=== PATIENT | female | born 1945 | race Caucasian/White ===

== ENCOUNTER 2020-05-26 17:40 | Inpatient (IN) | payer MEDICARE, SELFPAY ==
[~2020-05-26] VITALS: Ht 157.5 cm; Wt 64.0 kg
--- NOTE | 2020-05-26 17:40 | NUR ---
Froylan mary in [facility] - 05/26/20 at 1806 by ELY PT TO FAST TRACK FOR EVALUATION
[2020-05-26 17:45] VITALS: BP_SYST 121
--- NOTE | 2020-05-26 17:45 | NUR ---
[facility] DA[facility]. PT HAS RECENT COVID DIAGNOSIS 5 DAYS AGO. SPO2 97% ON RA AND PT CURRENTLY IN NO ACUTE DISTRESS. V/S STABLE.
--- NOTE | 2020-05-26 17:46 | NUR ---
DR. HANNAH AT BEDSIDE TO EVALUATE PT STATUS
--- NOTE | 2020-05-26 17:46 | NUR ---
Patient to ER bed FT1 to gown for evaluation. Side rails up.
[2020-05-26 18:31] LABS: BASOPHILS % (AUTO) 0.2 % (0.0-2.0); HEMATOCRIT 30.9 % (36-48); HEMOGLOBIN 10.3 g/dL (12.0-16.0); LYMPHOCYTES # (AUTO) 0.6 K/uL (1.0-5.5); LYMPHOCYTES % (AUTO) 14.4 % (20.5-51.5); MEAN CORPUSCULAR HEMOGLOBIN 26 pg (27-31); MEAN CORPUSCULAR HGB CONC 33 % (32-36); MEAN CORPUSCULAR VOLUME 77 fL (79.0-98.0); MONOCYTES # (AUTO) 0.4 K/uL (0.0-1.0); MONOCYTES % (AUTO) 9.3 % (1.7-9.3); NEUTROPHILS # (AUTO) 3.1 K/uL (1.8-7.7); NEUTROPHILS % (AUTO) 76.1 % (40.0-70.0); PLATELET COUNT (AUTO) 442 K/uL (130-430); RED BLOOD CELL COUNT(AUTO) 4.02 MIL/uL (4.2-6.2); RED CELL DISTRIBUTION WIDTH 19.7 % (9.0-15.0); WHITE BLOOD COUNT (AUTO) 4.1 K/uL (4.8-10.8)
--- NOTE | 2020-05-26 18:59 | NUR ---
Pt resting in [facility] at this time, no distress noted, VSS
[2020-05-26 19:12] LABS: INR 3.7 (0.8-1.2); PROTHROMBIN TIME 36.4 SECS (9.5-12.5)
--- NOTE | 2020-05-26 19:13 | NUR ---
bedside report received from felting machine operatorkeyona hoskins. keyona porter will assume pt care
--- NOTE | 2020-05-26 19:17 | NUR ---
pt resting quietly in bed vital signs stable will continue to monitor
[2020-05-26 19:18] LABS: ANION GAP 14 (5-15); CALCIUM 8.8 mg/dL (8.4-11.0); CHLORIDE 90 mmol/L (98-107); GLUCOSE 149 mg/dL (70-99); POTASSIUM 3.2 mmol/L (3.5-5.1); SODIUM SERUM 131 mmol/L (136-145); UREA NITROGEN, BLOOD 32 mg/dL (8-21)
[2020-05-26 19:19] LABS: ALANINE AMINOTRANSFERASE 61 U/L (12-78); ALBUMIN 2.9 g/dL (3.4-4.8); ASPARTATE AMINOTRANSFERASE 137 U/L (10-37); CREATININE 1.32 mg/dL (0.55-1.30); TOTAL BILIRUBIN 6.2 mg/dL (0.0-1.0)
[2020-05-26] MEDS ORDERED: metroNIDAZOLE 500 mg/NS 100 ML IV ONE (19:30)
--- NOTE | 2020-05-26 19:45 | NUR ---
MED SURG ADMIT ORDERS TAKEN FROM MD POLANCO VIA TELEPHONE READBACK
[2020-05-26] MEDS ORDERED: cefTRIAXone 2 GM VIAL ONE (19:59)
[2020-05-26] MEDS: D5NS 1,000 ML IV SCH (21:06)
[2020-05-26] MEDS ORDERED: ACETAMINOPHEN 500 MG TABLET PO PRN (21:15)
[2020-05-26] MEDS ORDERED: ZOLPIDEM TARTRATE 5 MG TABLET PO PRN (21:15)
[2020-05-26] MEDS ORDERED: HYDROcodone/ACETAMIN 7.5-325 MG TAB PO PRN (21:15)
[2020-05-26] MEDS ORDERED: DOCUSATE SODIUM 100 MG/10 ML UDC PO PRN (21:15)
[2020-05-26] MEDS ORDERED: ONDANSETRON HCL 4 MG/2 ML VIAL IVP PRN (21:15)
[2020-05-26 21:40] LABS: FREE T4 (FREE THYROXINE) 2.2 ng/dl (0.8-1.5); PHOSPHORUS 1.9 mg/dL (2.7-4.5); THYROID STIMULATING HORMONE 0.56 uIu/mL (0.36-3.74)
--- NOTE | 2020-05-26 22:12 | NUR ---
SPOKEN TO MD MADDEN WILL CONSULT IN THE AM
--- NOTE | 2020-05-26 22:40 | NUR ---
COVID SAMPLE AND MRSA SWAB COLLECTED AND SENT TO LAB AWAITING RESULTS PT TOLERATED WELL
--- NOTE | 2020-05-26 22:51 | NUR ---
LAB AT BEDSIDE RETRIEVING SAMPLES PT TOLERATED WELL
--- NOTE | 2020-05-26 23:26 | NUR ---
PT RESTNG QUIETLY IN BED VITAL SIGNS STABLE WILL CONTINUE TO MONITOR
--- NOTE | 2020-05-26 23:32 | NUR ---
PT REPORT CALLED TO BATTERY TESTER MYLENE WHO RECIEVED REPORT AND WILL ASSUME CARE OF PT. PT TRANSPORTED VIA GURNEY BY ELECTRICAL LINESWORKER TO MED SURG ROOM 121C VITAL SIGNS STABLE UPON TRANSFER.
--- NOTE | 2020-05-26 23:45 | NUR ---
ADMIT NOTE Received pt from ER to the floor with a diagnosis of failure to thrive. Admission process initiated. patient oriented to pain management, safety and call light-teach back done.
[2020-05-27] VITALS (7 sets, daily range): BP systolic 102–126
--- NOTE | 2020-05-27 04:43 | NUR ---
CONSULTATION PAGED/CALLED Reason for Consultation: GI Person Who was Notified: TAMIKO Consulting Physician: JUAQUIN Pain Management Nurse Specialty: Ordering Physician: Shan POLANCO
[2020-05-27] MEDS ORDERED: metroNIDAZOLE 250 mg/NS 50 ML IV SCH (08:15)
--- NOTE | 2020-05-27 08:45 | NUR ---
Opening Notes Patient is awake, alert and oriented x2. Patient is noted with intermittent episodes of confusion. Pt is also noted crying while laying in bed. NO resp distress noted at this time. Pt remains on continuous oxygen @ 2 LPM, tolerated well. IV site on right AC, 22 gauge intact at this time. D5NS @ 60 cc/hr, infusing well at this time. Patient is incontinent. Cleaned, left dry and repositioned while in bed. All needs met at this time. Safety and fall precautions in place. Bed in lowest position, alarm on, locked. Will continue to monitor.
[2020-05-27] MEDS: FAMOTIDINE 20 MG TABLET PO SCH (09:00)
[2020-05-27] MEDS ORDERED: PHYTONADIONE 10 MG in NS 50 ML IV ONE (09:30)
[2020-05-27] MEDS: MORPHINE 2 MG/ML INJ. SYRINGE IVP PRN (09:45)
--- NOTE | 2020-05-27 09:45 | NUR ---
Morphine 2 mg IVP Patient is c/o gen body pain, 12/18, requesting pain medication. Administered Morphine 2 mg IVP, tolerated well. Will continue to monitor.
[2020-05-27] MEDS: LEVOFLOXACIN 250 MG/D5W 50 ML IV SCH (10:00)
[2020-05-27] MEDS: D5NS 1,000 ML IV SCH (10:00)
--- NOTE | 2020-05-27 10:10 | NUR ---
Nutrition Update Daniel Scale 15 noted. Pt admitted for FTT. Diet: Clear liquid BMI: 25.8 kg/m2 RD to follow per nutrition care standards.
[2020-05-27] MEDS: PANTOPRAZOLE SODIUM 40 MG TAB PO SCH (10:21)
--- NOTE | 2020-05-27 11:39 | NUR ---
CONSULTATION PAGED/CALLED Reason for Consultation: [] ELEVATED BUN/CREA Person Who was Notified: [] DR BUSBY Consulting Physician: [] DR BUSBY Pet Sitting Specialty: [] NEPHROLOGY Ordering Physician: [] DR Shan POLANCO
[2020-05-27 13:50] LABS: ANION GAP 5 (5-15); CHLORIDE 95 mmol/L (98-107); CREATININE 0.86 mg/dL (0.55-1.30); GLUCOSE 154 mg/dL (70-99); POTASSIUM 3.5 mmol/L (3.5-5.1); SODIUM SERUM 130 mmol/L (136-145); UREA NITROGEN, BLOOD 17 mg/dL (8-21)
[2020-05-27] MEDS: metroNIDAZOLE 250 mg/NS 50 ML IV SCH ×2 (14:00→21:36)
--- NOTE | 2020-05-27 15:35 | NUR ---
MEDICATION LIST: CALLED [facility] AND SPOKE WITH TRISTIAN. TRISTIAN STATED SHE WILL FAX OVER PATIENT'S MEDICATION LIST.
[2020-05-27] MEDS ORDERED: BACL10TA PO (16:12)
[2020-05-27] MEDS ORDERED: APIX5TAB PO (16:12)
[2020-05-27] MEDS ORDERED: MOM PO (16:12)
[2020-05-27] MEDS ORDERED: TRAZ-250 PO (16:12)
[2020-05-27] MEDS ORDERED: FURO-150 PO (16:12)
[2020-05-27] MEDS ORDERED: DILT60TA3 PO (16:12)
[2020-05-27] MEDS ORDERED: LIP20 PO (16:12)
[2020-05-27] MEDS ORDERED: FAMO20TA8 PO (16:12)
[2020-05-27] MEDS ORDERED: OXYC10TA56 PO (16:12)
[2020-05-27] MEDS ORDERED: ACET-2634 PO (16:12)
--- NOTE | 2020-05-27 17:06 | NUR ---
SS note received a suicide risk referral. Looked through both Admission Assessments and notes. No indication of suicide risk. Spoke with Kaylee GARCIA, no indication of suicide risk. referral in error. Kaylee will correct.
[2020-05-28 02:42] VITALS: BP_SYST 109
[2020-05-28] MEDS: D5NS 1,000 ML IV SCH ×2 (05:20→22:00)
[2020-05-28] MEDS: metroNIDAZOLE 250 mg/NS 50 ML IV SCH ×3 (05:50→22:00)
[2020-05-28 07:48] LABS: TOTAL IRON BIND. CAPACITY 221 ug/dL (250-450)
[2020-05-28 08:00] VITALS: BP_SYST 123
[2020-05-28 08:00] LABS: ANION GAP 10 (5-15); CALCIUM 8.2 mg/dL (8.4-11.0); CHLORIDE 97 mmol/L (98-107); CREATININE 0.78 mg/dL (0.55-1.30); GLUCOSE 151 mg/dL (70-99); SODIUM SERUM 136 mmol/L (136-145); UREA NITROGEN, BLOOD 11 mg/dL (8-21)
[2020-05-28 08:02] LABS: PROTHROMBIN TIME 10.7 SECS (9.5-12.5)
[2020-05-28] MEDS ORDERED: IPRATROPIUM/ALBUTEROL SULFATE 3 ML AMPUL.NEB (DUONEB) INH PRN (08:15)
[2020-05-28] MEDS ORDERED: FAMOTIDINE 20 MG TABLET ONE (08:37)
[2020-05-28 08:43] LABS: ACETAMINOPHEN < 1 ug/mL (1-30); POTASSIUM 2.8 mmol/L (3.5-5.1)
[2020-05-28 08:44] LABS: LIPASE 736 U/L (73-393)
--- NOTE | 2020-05-28 08:45 | NUR ---
CRITICAL LAB: POTASSIUM from Laboratory called with critical lab value POTASSIUM 2.8. Medical record number and patient name verified. Read back of values done. DR NOONAN notified of value. NEW orders given at this time.
[2020-05-28] MEDS: PANTOPRAZOLE SODIUM 40 MG TAB PO SCH (09:00)
[2020-05-28] MEDS: FAMOTIDINE 20 MG TABLET PO SCH (09:00)
[2020-05-28] MEDS: LEVOFLOXACIN 250 MG/D5W 50 ML IV SCH (09:39)
[2020-05-28] MEDS: MORPHINE 2 MG/ML INJ. SYRINGE IVP PRN ×2 (09:40→15:45)
--- NOTE | 2020-05-28 10:27 | NUR ---
MRI MRCP DEFERRED S/w radiology, stated "They cannot do the MRI MRCP d/t patient implant." Paged Dr. Olivares, awaiting callback.
[2020-05-28 10:29] VITALS: BP_SYST 123
[2020-05-28] MEDS: POTASSIUM CHLORIDE 40 MEQ, LIDOCAINE JECT 2% PF 100 MG 50 MG in NS 250 ML IV PRN (10:45)
[2020-05-28 12:00] VITALS: BP_SYST 114
[2020-05-28] MEDS ORDERED: DILTIAZEM HCL 60 MG TABLET PO ONE (12:00)
--- NOTE | 2020-05-28 12:01 | NUR ---
Dietitian Recommendations *Recommend: advance diet when able. ([facility] Card[facility] diet, Glucerna BID) *Encourage pt to optimize PO intake. Please see Nutritional Assessment for details. MEL, RD
[2020-05-28] MEDS ORDERED: LORazepam 2 MG/ML VIAL IVP ONE (13:15)
[2020-05-28 13:42] LABS: BASOPHILS % (AUTO) 1.7 % (0.0-2.0); HEMATOCRIT 29.8 % (36-48); HEMOGLOBIN 9.6 g/dL (12.0-16.0); LYMPHOCYTES # (AUTO) 0.4 K/uL (1.0-5.5); LYMPHOCYTES % (AUTO) 13.3 % (20.5-51.5); MEAN CORPUSCULAR HEMOGLOBIN 26 pg (27-31); MEAN CORPUSCULAR HGB CONC 32 % (32-36); MEAN CORPUSCULAR VOLUME 79 fL (79.0-98.0); MONOCYTES # (AUTO) 0.3 K/uL (0.0-1.0); MONOCYTES % (AUTO) 9.6 % (1.7-9.3); NEUTROPHILS # (AUTO) 2.1 K/uL (1.8-7.7); NEUTROPHILS % (AUTO) 75.4 % (40.0-70.0); PLATELET COUNT (AUTO) 278 K/uL (130-430); RED BLOOD CELL COUNT(AUTO) 3.78 MIL/uL (4.2-6.2); RED CELL DISTRIBUTION WIDTH 20.5 % (9.0-15.0); WHITE BLOOD COUNT (AUTO) 2.7 K/uL (4.8-10.8)
--- NOTE | 2020-05-28 14:55 | NUR ---
HIGH ALERT NOTE: Called Dr. Watson back at [phone] identified within the medical roster to verify physician authenticity. Obtained new orders for Ativan 0.5 mg IVP x 1 time only, give prior to MRI MRCP procedure. Noted and carried out. Addendum: 05/28/20 at 1942 by Krysta Triplett RN MRI MRCP is canceled d/t IMPLANT. Dr. Watson, Dr. Lopez are aware.
--- NOTE | 2020-05-28 15:11 | NUR ---
Abdominal Ultrasound teletype technician unable to complete exam due to patient motion and large amount of gas - informed Primary RN Krysta.
[2020-05-28 16:00] VITALS: BP_SYST 114
--- NOTE | 2020-05-28 16:00 | NUR ---
MIDLINE INSERTED ON ESTHER
--- NOTE | 2020-05-28 16:14 | NUR ---
CONSULT ONCOLOGY DUODENAL CANCER DR DAUGHERTY [phone] S/W [facility]
[2020-05-28] MEDS: KCL 20 mEq in 100 mL (PREMIX) 100 ML IV SCH ×2 (16:55→21:00)
--- NOTE | 2020-05-28 17:06 | NUR ---
Additional KRider dose S/w Dr. Yang and informed MD that patient already received KRider 40 mEq earlier in shift. Clarified if it was okay to give the additional (2) bags to KRider, MD confirmed it was okay to give. Will continue to monitor. Addendum: 05/28/20 at 1710 by Krysta Triplett RN Will endorse to next shift to give last dose of KRider.
[2020-05-28 18:28] LABS: INR 1.1 (0.8-1.2); PROTHROMBIN TIME 11.1 SECS (9.5-12.5)
--- NOTE | 2020-05-28 19:15 | NUR ---
OPENING NOTE REPORT RECEIVED FROM DAYSHIFT NURSE. PATIENT RECEIVED LYING IN BED, AWAKE, CONFUSED, NO S/S OF ACUTE DISTRESS. BREATHING EVEN AND UNLABORED. PATIENT DENIES PAIN. IVF INFUSING WELL. IV SITE PATENT, NO SIGNS OF INFILTRATION OR INFECTION NOTED. SKIN WARM AND DRY TO TOUCH. CALL LIGHT WITH PATIENT. EDUCATED ON HOW TO CALL, PATIENT DEMONSTRATED BACK PROPER USE. BED ALARM ON, BED IS LOCKED AND AT LOWEST POSITION. WILL CONTINUE TO MONITOR.
[2020-05-28 20:00] VITALS: BP_SYST 115
[2020-05-28] MEDS: MEGESTROL ACETATE 400 MG/10 ML UDC PO SCH (21:00)
[2020-05-28] MEDS: traZODone HCL 50 MG TABLET (DESYREL) PO SCH (21:00)
[2020-05-28] MEDS: ATORVASTATIN 20 MG TABLET PO SCH (21:00)
[2020-05-29] VITALS: BP_SYST 122
[2020-05-29] MEDS: metroNIDAZOLE 250 mg/NS 50 ML IV SCH ×3 (06:00→21:06)
[2020-05-29 07:06] LABS: BASOPHILS % (AUTO) 0.5 % (0.0-2.0); HEMOGLOBIN 8.8 g/dL (12.0-16.0); LYMPHOCYTES # (AUTO) 0.4 K/uL (1.0-5.5); MONOCYTES # (AUTO) 0.3 K/uL (0.0-1.0); NEUTROPHILS # (AUTO) 1.6 K/uL (1.8-7.7); RED BLOOD CELL COUNT(AUTO) 3.48 MIL/uL (4.2-6.2); WHITE BLOOD COUNT (AUTO) 2.2 K/uL (4.8-10.8)
[2020-05-29 07:19] LABS: EOSINOPHILS % (AUTO) 0.3 % (0.0-4.0); HEMATOCRIT 27.2 % (36-48); LYMPHOCYTES % (AUTO) 16.5 % (20.5-51.5); MEAN CORPUSCULAR HEMOGLOBIN 25 pg (27-31); MEAN CORPUSCULAR HGB CONC 33 % (32-36); MEAN CORPUSCULAR VOLUME 78 fL (79.0-98.0); MONOCYTES % (AUTO) 11.5 % (1.7-9.3); NEUTROPHILS % (AUTO) 71.2 % (40.0-70.0); PLATELET COUNT (AUTO) 212 K/uL (130-430); RED CELL DISTRIBUTION WIDTH 19.4 % (9.0-15.0)
--- NOTE | 2020-05-29 07:29 | NUR ---
CLOSING NOTE PATIENT IN BED, AWAKE, NO S/S OF ACUTE DISTRESS NOTED. BREATHING EVEN AND UNLABORED. ON ROOM AIR, TOLERATING WELL. IVF INFUSING WELL, IV SITE PATENT, NO SIGNS OF INFILTRATION OR INFECTION NOTED. ALL NEEDS MET THROUGHOUT SHIFT. FALL, SAFETY, AND ISOLATION PRECAUTIONS MAINTAINED THROUGHOUT SHIFT. REPORT GIVEN TO DAYSHIFT NURSE.
[2020-05-29 07:34] LABS: ALANINE AMINOTRANSFERASE 50 U/L (12-78); ALBUMIN 2.2 g/dL (3.4-4.8); ANION GAP 7 (5-15); ASPARTATE AMINOTRANSFERASE 103 U/L (10-37); BILIRUBIN,DIRECT 5.1 mg/dL (0.0-0.3); CALCIUM 8.1 mg/dL (8.4-11.0); CHLORIDE 103 mmol/L (98-107); CREATININE 0.64 mg/dL (0.55-1.30); GLUCOSE 138 mg/dL (70-99); POTASSIUM 3.5 mmol/L (3.5-5.1); SODIUM SERUM 139 mmol/L (136-145); TOTAL BILIRUBIN 6.1 mg/dL (0.0-1.0); UREA NITROGEN, BLOOD 8 mg/dL (8-21)
[2020-05-29 08:00] VITALS: BP_SYST 128
--- NOTE | 2020-05-29 08:00 | NUR ---
Opening notes: Patient is awake and alert, not oriented, seems a little anxious. Breathing well on RA, denies pain at this time. Midline is patent and is running D5NS@60ML/HR, dressing intact. Patient is pending MRI approval from , it is in question whether the patient had a pacemaker. Report was requested from [facility] per , waiting for reports. Patient is in isolation due to positive covid test. Bed is low, locked, 2 side rails are up and call light is within reach.
[2020-05-29 08:06] LABS: AFP, TUMOR MARKER 1.2 ng/mL (0.0-8.3)
[2020-05-29] MEDS: MEGESTROL ACETATE 400 MG/10 ML UDC PO SCH ×2 (08:50→21:06)
[2020-05-29] MEDS: DILTIAZEM HCL 60 MG TABLET PO SCH (08:50)
[2020-05-29] MEDS: PANTOPRAZOLE SODIUM 40 MG TAB PO SCH (08:51)
[2020-05-29] MEDS: FAMOTIDINE 20 MG TABLET PO SCH (08:51)
[2020-05-29 10:13] LABS: HEPATITIS A AB, IgM Negative (Negative); HEPATITIS B CORE AB, IgM Negative (Negative); HEPATITIS B SURFACE AG Negative (Negative)
[2020-05-29] MEDS: LEVOFLOXACIN 250 MG/D5W 50 ML IV SCH (10:28)
[2020-05-29] MEDS: MORPHINE 2 MG/ML INJ. SYRINGE IVP PRN (10:49)
[2020-05-29 12:00] VITALS: BP_SYST 100; BP_SYST 111
[2020-05-29] MEDS ORDERED: LORazepam 1 MG TABLET PO PRN (13:30)
[2020-05-29] MEDS ORDERED: LORazepam 1 MG TABLET ONE (13:39)
[2020-05-29] MEDS ORDERED: HYDROmorphone 2 MG/ML VIAL ONE (13:40)
[2020-05-29] MEDS: D5NS 1,000 ML IV SCH (15:32)
--- NOTE | 2020-05-29 15:52 | NUR ---
called to ask to f/u on records from [facility], faxed papers requesting medical records, have not received as of yet. asked to try to request from [facility], will request today.
--- NOTE | 2020-05-29 16:18 | NUR ---
MRI/MRCP UPDATE : Paged Nuclear Powerplant Mechanic office to inquire about the device that the patient has implanted to proceed with the MRI. I left a detailed message and waiting for a call back. Our MRI does not want to proceed with the MRCP until they know specifically what device the patient has even though she has been cleared by , and the mobile electronics installer. I gave an update.
--- NOTE | 2020-05-29 17:15 | NUR ---
Per son Patient has a [employer] chip, she may have the MRI test, called MRI but no answer. Will endorse to pm nurse.
[2020-05-29 17:36] VITALS: BP_SYST 101
--- NOTE | 2020-05-29 18:51 | NUR ---
Closing notes: Patient is awake and alert, not oriented. Breathing well on RA, denies pain at this time. Midline is patent and is running D5NS@60ML/HR, dressing intact. Patient is pending MRI, did not have it done today as MRI dept did not want to proceed until they knew exactly what the patient had implanted, implant is an daytronic chip - per son and personnel recruiter, ok to proceed with MRI - will endorse to pm nurse. Report was requested from [facility] and [facility], per , waiting for reports. Patient is in isolation due to positive covid test. All needs were met during the shift, I will give report to pm nurse. Bed is low, locked, 2 side rails are up and call light is within reach.
[2020-05-29] MEDS: HYDROmorphone 2 MG/ML VIAL IVP PRN (19:36)
[2020-05-29 20:00] VITALS: BP_SYST 120
--- NOTE | 2020-05-29 20:00 | NUR ---
OPENING NOTE PT AWAKE, RESTING IN BED, PT DENIES ANY PAIN OR DISCOMFORT AT THIS TIME. SCHEDULED MEDICATIONS ADMINISTERED AT THIS TIME, PT ABLE TO TAKE PO MEDICATIONS WITHOUT DIFFICULTY. IVF INFUSING TO CARI MIDLINE. CALL LIGHT WITHIN REACH, BED IN LOW AND LOCKED POSITION WITH BED ALARM ON. ISOLATION PRECAUTIONS IN PLACE.
[2020-05-29 21:06] LABS: ANTI NUCLEAR AB WITH REFLEX Negative (Negative)
[2020-05-29] MEDS: traZODone HCL 50 MG TABLET (DESYREL) PO SCH (21:06)
[2020-05-29] MEDS: ATORVASTATIN 20 MG TABLET PO SCH (21:06)
[2020-05-30] MEDS: metroNIDAZOLE 250 mg/NS 50 ML IV SCH ×3 (05:13→21:30)
--- NOTE | 2020-05-30 06:02 | NUR ---
CLOSING NOTE PT RESTING QUIETLY IN BED, NO ACUTE DISTRESS NOTED, BREATHING EVEN AND UNLABORED. PT REMAINS ON ROOM AIR. IVF INFUSING TO CARI MIDLINE. ALL NEEDS MET THROUGHOUT SHIFT. SAFETY MEASURES IN PLACE. WILL CONTINUE TO MONITOR UNTIL PT CARE IS ENDORSED TO DAY SHIFT RN.
[2020-05-30 08:03] LABS: HEMOGLOBIN 9.9 g/dL (12.0-16.0)
[2020-05-30 08:06] LABS: HEMATOCRIT 31.5 % (36-48); MEAN CORPUSCULAR HEMOGLOBIN 25 pg (27-31); MEAN CORPUSCULAR HGB CONC 31 % (32-36); MEAN CORPUSCULAR VOLUME 80 fL (79.0-98.0); PLATELET COUNT (AUTO) 210 K/uL (130-430); RED BLOOD CELL COUNT(AUTO) 3.92 MIL/uL (4.2-6.2); RED CELL DISTRIBUTION WIDTH 20.3 % (9.0-15.0)
[2020-05-30 08:19] LABS: ANION GAP 11 (5-15); CALCIUM 8.5 mg/dL (8.4-11.0); CHLORIDE 103 mmol/L (98-107); CREATININE 0.58 mg/dL (0.55-1.30); GLUCOSE 141 mg/dL (70-99); POTASSIUM 3.5 mmol/L (3.5-5.1); SODIUM SERUM 141 mmol/L (136-145); UREA NITROGEN, BLOOD 6 mg/dL (8-21); WHITE BLOOD COUNT (AUTO) 4.2 K/uL (4.8-10.8)
[2020-05-30] MEDS ORDERED: FAMOTIDINE 20 MG TABLET ONE (09:06)
[2020-05-30] MEDS: MORPHINE 2 MG/ML INJ. SYRINGE IVP PRN (09:32)
[2020-05-30 09:43] VITALS: BP_SYST 107
[2020-05-30] MEDS: DILTIAZEM HCL 60 MG TABLET PO SCH (09:43)
[2020-05-30] MEDS: LEVOFLOXACIN 250 MG/D5W 50 ML IV SCH (09:43)
[2020-05-30] MEDS: ENOXAPARIN SODIUM 40 MG/0.4 ML SYRINGE SUBCUT SCH (09:43)
[2020-05-30] MEDS: PANTOPRAZOLE SODIUM 40 MG TAB PO SCH (09:43)
[2020-05-30] MEDS: FAMOTIDINE 20 MG TABLET PO SCH (09:43)
[2020-05-30] MEDS: MEGESTROL ACETATE 400 MG/10 ML UDC PO SCH ×2 (09:43→21:30)
--- NOTE | 2020-05-30 09:43 | NUR ---
OPENING NOTES PT AWAKE, ALERT, AND ORIENTED X3, CONFUSED AT TIMES REPEATING SELF. NONLABORED BREATHING NOTED ON ROOM AIR, TOLERATING WELL. IV LINES INTACT AND PATENT, NO SIGNS OF INFILTRATION NOTED, FLUIDS RUNNING ORDERED. NO ACUTE DISTRESS NOTED. ALL NEEDS MET. CALL LIGHT IN REACH. FALL, ASPIRATION, AND ISOLATIONS PRECAUTIONS IN PLACE. BED LOCKED AND IN LOWEST POSITION. BED ALARM ON. CONTINUE TO MONITOR. Addendum: 05/30/20 at 1627 by Fallon Olmos RN ROUTINE MEDS ADMINISTERED ORDERED PER MD, EDUCATION GIVEN, TOLERATED WELL. PT C/O PAIN, ADMINISTERED PRN PAIN MEDS ORDERED PER MD, EDUCATION GIVEN, TOLERATED WELL. CONTINUE TO MONITOR.
--- NOTE | 2020-05-30 09:48 | NUR ---
UPDATE ON MRI/MRCP SPOKE TO DR. REZA REGARDING MRI/MRCP STATED THAT RADIOLOGY IS REQUESTING DOCUMENT REGARDING CHIP IMPLANTED IN PATIENT. DR. REZA SPOKE TO RADIOLOGIST JOE AND STATED HE WILL CALL DR. MARSHALL. SPOKE TO PATIENT'S SON SHELLEY ON FACE SHEET, VERBALIZED TO SON THAT RADIOLOGY IS REQUESTING DOCUMENT OF WHERE THE CHIP IS. SON VERBALIZED UNDERSTANDING AND STATED THAT PATIENT'S FREIGHT BOOKER STATED IT WAS OKAY FOR PATIENT TO HAVE MRI/MRCP, VERBALIZED ALL THIS INFO TO JOE FROM RADIOLOGY, JOE VERBALIZED UNDERSTANDING AND STATED THAT THEY NEED A DOCUMENT SHOWING WHERE THE CHIP IS, WILL CALL SHELLEY.
[2020-05-30 11:17] LABS: FOLATE (FOLIC ACID) 13.5 ng/mL (>3.0)
[2020-05-30 12:00] VITALS: BP_SYST 116
--- NOTE | 2020-05-30 12:00 | NUR ---
EMERGENCY DEPARTMENT NURSE FEEDING PATIENT AT THIS TIME, TOLERATING WELL. CONTINUE TO MONITOR.
[2020-05-30] MEDS: D5NS 1,000 ML IV SCH (12:01)
[2020-05-30 12:29] LABS: BAND % (MANUAL) 0 % (0-6); BASOPHILS % (MANUAL) 0 % (0-2); EOSINOPHILS % (MANUAL) 2 % (0-7); LYMPHOCYTES % (MANUAL) 15 % (20-46); MONOCYTES % (MANUAL) 6 % (0-11)
[2020-05-30 16:00] VITALS: BP_SYST 120
--- NOTE | 2020-05-30 16:22 | NUR ---
CHIP DOCUMENT SPOKE TO SHELLEY FOR THE DOCUMENT, SHELLEY VERBALIZED UNDERSTANDING AND STATED WILL CALL THE DOCTOR FOR THE DOCUMENT OF WHERE THE CHIP IS. SPOKE TO RADIOLOGY DEPT STATING SHELLEY IS TRYING TO GET THE DOCUMENT, ACCOUNTING TECHNICIAN VERBALIZED UNDERSTANDING.
--- NOTE | 2020-05-30 18:58 | NUR ---
CLOSING NOTES PT RESTING IN BED, CHEST RISE AND FALL NOTED. NONLABORED BREATHING NOTED ON ROOM AIR, TOLERATING WELL. IV LINES INTACT AND PATENT, NO SIGNS OF INFILTRATION NOTED, FLUIDS RUNNING ORDERED PER MD. CALL LIGHT IN REACH. NO ACUTE DISTRESS NOTED. ALL NEEDS MET. FALL, ASPIRATION, AND ISOLATION PRECAUTIONS IN PLACE. BED LOCKED AND IN LOWEST POSITION. BED ALARM ON. ENDORSED CARE TO RADHA MORRISSEY INCLUDING MRI/MRCP INFORMATION, RN VERBALIZED UNDERSTANDING.
[2020-05-30] MEDS: ATORVASTATIN 20 MG TABLET PO SCH (21:30)
[2020-05-30] MEDS: traZODone HCL 50 MG TABLET (DESYREL) PO SCH (21:30)
[2020-05-31 00:14] VITALS: BP_SYST 125
[2020-05-31] MEDS: D5NS 1,000 ML IV SCH ×2 (03:10→23:10)
[2020-05-31] MEDS: metroNIDAZOLE 250 mg/NS 50 ML IV SCH ×3 (07:00→21:09)
[2020-05-31 07:03] LABS: BASOPHILS % (AUTO) 0.8 % (0.0-2.0); EOSINOPHILS % (AUTO) 0.2 % (0.0-4.0); HEMATOCRIT 34.6 % (36-48); HEMOGLOBIN 11.2 g/dL (12.0-16.0); LYMPHOCYTES # (AUTO) 0.6 K/uL (1.0-5.5); LYMPHOCYTES % (AUTO) 12.5 % (20.5-51.5); MEAN CORPUSCULAR HEMOGLOBIN 25 pg (27-31); MEAN CORPUSCULAR HGB CONC 33 % (32-36); MEAN CORPUSCULAR VOLUME 78 fL (79.0-98.0); MONOCYTES # (AUTO) 0.3 K/uL (0.0-1.0); MONOCYTES % (AUTO) 6.9 % (1.7-9.3); NEUTROPHILS # (AUTO) 3.5 K/uL (1.8-7.7); PLATELET COUNT (AUTO) 238 K/uL (130-430); RED BLOOD CELL COUNT(AUTO) 4.42 MIL/uL (4.2-6.2); RED CELL DISTRIBUTION WIDTH 20.2 % (9.0-15.0); WHITE BLOOD COUNT (AUTO) 4.4 K/uL (4.8-10.8)
--- NOTE | 2020-05-31 07:44 | NUR ---
spoke to dr. mir, patient c/o dry eyes, received orders, verified, and carried out. dr. mir aware of mrcp being held due to paperwork.
[2020-05-31] MEDS ORDERED: PEG 400/HYPROMELLOSE/GLYCERIN 15 ML DROPS OP PRN ×2 (07:45→08:15)
[2020-05-31 07:50] LABS: ALANINE AMINOTRANSFERASE 65 U/L (12-78); ALBUMIN 2.4 g/dL (3.4-4.8); ANION GAP 13 (5-15); ASPARTATE AMINOTRANSFERASE 121 U/L (10-37); CALCIUM 8.5 mg/dL (8.4-11.0); CHLORIDE 99 mmol/L (98-107); CREATININE 0.54 mg/dL (0.55-1.30); GLUCOSE 161 mg/dL (70-99); POTASSIUM 3.1 mmol/L (3.5-5.1); SODIUM SERUM 137 mmol/L (136-145); UREA NITROGEN, BLOOD 4 mg/dL (8-21)
[2020-05-31 08:06] LABS: NEUTROPHILS % (AUTO) 79.6 % (40.0-70.0)
--- NOTE | 2020-05-31 08:27 | NUR ---
[facility] WAS CALLED RE: REQUEST MEDICAL RECORD. SPOKE TO JUAN.
[2020-05-31] MEDS ORDERED: FAMOTIDINE 20 MG TABLET ONE (08:31)
[2020-05-31 08:50] VITALS: BP_SYST 101
[2020-05-31] MEDS: MEGESTROL ACETATE 400 MG/10 ML UDC PO SCH ×3 (08:54→21:05)
[2020-05-31] MEDS: DILTIAZEM HCL 60 MG TABLET PO SCH ×2 (08:55→09:00)
[2020-05-31] MEDS: PANTOPRAZOLE SODIUM 40 MG TAB PO SCH ×2 (08:55→09:00)
[2020-05-31] MEDS: FAMOTIDINE 20 MG TABLET PO SCH ×2 (08:55→09:00)
[2020-05-31] MEDS: ENOXAPARIN SODIUM 40 MG/0.4 ML SYRINGE SUBCUT SCH (08:56)
[2020-05-31] MEDS: MORPHINE 2 MG/ML INJ. SYRINGE IVP PRN (08:57)
--- NOTE | 2020-05-31 09:30 | NUR ---
opening notes pt awake, alert, and oriented x2. re-oriented pt. midline intact and patent, no signs of infiltration noted. no acute distress noted. all needs met. call light in reach. fall, aspiration, and isolation precautions in place. bed locked and in lowest position. bed alarm on. continue to monitor.
[2020-05-31] MEDS ORDERED: POTASSIUM CHLORIDE 20 MEQ/PKT PACKET ONE (09:31)
[2020-05-31] MEDS: LEVOFLOXACIN 250 MG/D5W 50 ML IV SCH (09:34)
[2020-05-31] MEDS: POTASSIUM CHLORIDE 20 MEQ/PKT PACKET PO ONE ×2 (09:35→09:44)
--- NOTE | 2020-05-31 09:45 | NUR ---
REFUSED PO MEDS PATIENT SPIT UP PO MEDS AND STATED "I AM GOING TO THROW UP," ADMINISTERED PRN NAUSEA/VOMITING MEDICATIONS ORDERED PER MD, ASKED PT IF SHE WILL TAKE THE MEDICATIONS, PT CONTINUE TO REFUSE. EDUCATED PT ON THE IMPORTANCE OF TAKING MEDICATIONS INCLUDING SIDE EFFECTS, ASKED PT MULTIPLE TIMES, PT CONTINUE TO REFUSE AND TURNED MOUTH AWAY. CONTINUE TO MONITOR.
--- NOTE | 2020-05-31 11:10 | NUR ---
SPOKE TO JOE FROM RADIOLOGY, PT NPO STARTING NOW FOR THE MRCP, STATED THEY HAVE THE INFO REGARDING THE CHIP. JOE STATED WILL UPDATE FOR THE ESTIMATED TIME FOR TEST
[2020-05-31 12:06] LABS: ANTI-SMOOTH MUSCLE AB 4 Units (0-19)
[2020-05-31 12:17] VITALS: BP_SYST 113; BP_SYST 91
--- NOTE | 2020-05-31 13:35 | NUR ---
spoke to amy from radiology, stated that pt last ate at around 0945 and had small amount of food, stated ok to do MRI.
--- NOTE | 2020-05-31 13:51 | NUR ---
pt taken off the floor to radiology.
--- NOTE | 2020-05-31 13:55 | NUR ---
patient take off the floor to radiology.
[2020-05-31 14:34] LABS: ALPHA-1-ANTITRYPSIN, S 204 mg/dL (101-187)
[2020-05-31 14:36] LABS: SOLUBLE TRANSFERRIN RECEPTOR 52.8 nmol/L (12.2-27.3)
--- NOTE | 2020-05-31 15:18 | NUR ---
pt back on floor from radiology. administered iv abx as ordered per md, education given, tolerated well. spoke to pharmacist regarding potassium ivpb due to patient's low potassium and refused po potassium supplement this am. awaiting medication from pharm.
--- NOTE | 2020-05-31 16:35 | NUR ---
SPOKE TO DR. NOONAN REGARDING PT REFUSING MEDS THIS AM, MRCP DONE, AND ADMINISTERED PRN POTASSIUM SUPPLEMENT VIA IV SINCE PATIENT REFUSED PO POTASSIUM SUPPLEMENT THIS AM. STATED TO MD THAT PATIENT STATED SHE WAS GOING TO VOMIT AND ADMINISTERED PRN ZOFRAN ORDERED, BUT PATIENT CONTINUE TO REFUSE AFTER ADMINISTRATION, MD VERBALIZED UNDERSTANDING. NO NEW ORDERS RECEIVED AT THIS TIME.
[2020-05-31] MEDS: POTASSIUM CHLORIDE 40 MEQ, LIDOCAINE JECT 2% PF 100 MG 50 MG in NS 250 ML IV PRN (16:41)
[2020-05-31 17:00] VITALS: BP_SYST 100
--- NOTE | 2020-05-31 17:08 | NUR ---
CLEANED PT WITH PARMINDER STEEL, TOLERATED WELL. PT CLEAN AND DRY. CONTINUE TO MONITOR.
[2020-05-31 17:58] VITALS: BP_SYST 91
--- NOTE | 2020-05-31 18:57 | NUR ---
CLOSING NOTES PT RESTING IN BED, CHEST RISE AND FALL NOTED, EASILY AWAKEN. NONLABORED BREATHING NOTED ON ROOM AIR, TOLERATING WELL. MIDLINE INTACT AND PATENT, NO SIGNS OF INFILTRATION NOTED. NO ACUTE DISTRESS NOTED. ALL NEEDS MET. CALL LIGHT IN REACH. FALL, ASPIRATION, AND ISOLATION PRECAUTIONS IN PLACE. WILL ENDORSE TO NOC NURSE.
[2020-05-31 20:00] VITALS: BP_SYST 97
[2020-05-31] MEDS ORDERED: MORPHINE 4 MG/ML INJ. SYRINGE IVP PRN (20:15)
[2020-05-31] MEDS: traZODone HCL 50 MG TABLET (DESYREL) PO SCH (21:05)
[2020-05-31] MEDS: ATORVASTATIN 20 MG TABLET PO SCH (21:05)
[2020-06-01] VITALS: BP_SYST 101
[2020-06-01] MEDS: metroNIDAZOLE 250 mg/NS 50 ML IV SCH ×3 (05:55→21:25)
[2020-06-01 08:00] VITALS: BP_SYST 101
[2020-06-01] MEDS: FAMOTIDINE 20 MG TABLET PO SCH (09:00)
[2020-06-01] MEDS: DILTIAZEM HCL 60 MG TABLET PO SCH (09:00)
[2020-06-01] MEDS: DICYCLOMINE HCL 10 MG/5 ML SOLUTION PO SCH ×4 (09:00→21:00)
[2020-06-01] MEDS: ENOXAPARIN SODIUM 40 MG/0.4 ML SYRINGE SUBCUT SCH (10:15)
[2020-06-01] MEDS: MEGESTROL ACETATE 400 MG/10 ML UDC PO SCH ×2 (10:42→21:42)
[2020-06-01] MEDS: PANTOPRAZOLE SODIUM 40 MG TAB PO SCH (10:43)
[2020-06-01] MEDS: LEVOFLOXACIN 250 MG/D5W 50 ML IV SCH (10:44)
[2020-06-01] MEDS: HYDROmorphone 2 MG/ML VIAL IVP PRN (14:02)
[2020-06-01 16:37] VITALS: BP_SYST 96
[2020-06-01 17:49] LABS: BASOPHILS % (AUTO) 0.5 % (0.0-2.0); HEMATOCRIT 28.8 % (36-48); HEMOGLOBIN 9.5 g/dL (12.0-16.0); LYMPHOCYTES # (AUTO) 0.6 K/uL (1.0-5.5); LYMPHOCYTES % (AUTO) 13.3 % (20.5-51.5); MEAN CORPUSCULAR HEMOGLOBIN 26 pg (27-31); MEAN CORPUSCULAR HGB CONC 33 % (32-36); MEAN CORPUSCULAR VOLUME 78 fL (79.0-98.0); MONOCYTES # (AUTO) 0.4 K/uL (0.0-1.0); MONOCYTES % (AUTO) 8.5 % (1.7-9.3); NEUTROPHILS # (AUTO) 3.2 K/uL (1.8-7.7); NEUTROPHILS % (AUTO) 77.7 % (40.0-70.0); PLATELET COUNT (AUTO) 197 K/uL (130-430); RED CELL DISTRIBUTION WIDTH 19.7 % (9.0-15.0); WHITE BLOOD COUNT (AUTO) 4.2 K/uL (4.8-10.8)
[2020-06-01 17:51] LABS: ANION GAP 10 (5-15); CALCIUM 7.6 mg/dL (8.4-11.0); CHLORIDE 102 mmol/L (98-107); CREATININE 0.54 mg/dL (0.55-1.30); GLUCOSE 158 mg/dL (70-99); POTASSIUM 3.4 mmol/L (3.5-5.1); SODIUM SERUM 137 mmol/L (136-145); UREA NITROGEN, BLOOD 6 mg/dL (8-21)
[2020-06-01] MEDS: D5NS 1,000 ML IV SCH (19:10)
[2020-06-01 20:00] VITALS: BP_SYST 100
[2020-06-01] MEDS: ATORVASTATIN 20 MG TABLET PO SCH (21:30)
[2020-06-01] MEDS: traZODone HCL 50 MG TABLET (DESYREL) PO SCH (22:30)
[2020-06-02] VITALS: BP_SYST 106
[2020-06-02] MEDS: metroNIDAZOLE 250 mg/NS 50 ML IV SCH ×3 (05:30→22:00)
[2020-06-02 08:00] VITALS: BP_SYST 134
[2020-06-02 08:34] LABS: BASOPHILS % (AUTO) 0.6 % (0.0-2.0); EOSINOPHILS % (AUTO) 0.1 % (0.0-4.0); HEMATOCRIT 33.8 % (36-48); HEMOGLOBIN 10.8 g/dL (12.0-16.0); LYMPHOCYTES # (AUTO) 0.5 K/uL (1.0-5.5); LYMPHOCYTES % (AUTO) 12.2 % (20.5-51.5); MEAN CORPUSCULAR HEMOGLOBIN 25 pg (27-31); MEAN CORPUSCULAR HGB CONC 32 % (32-36); MEAN CORPUSCULAR VOLUME 79 fL (79.0-98.0); MONOCYTES # (AUTO) 0.3 K/uL (0.0-1.0); MONOCYTES % (AUTO) 6.8 % (1.7-9.3); NEUTROPHILS % (AUTO) 80.3 % (40.0-70.0); PLATELET COUNT (AUTO) 202 K/uL (130-430); RED BLOOD CELL COUNT(AUTO) 4.27 MIL/uL (4.2-6.2); RED CELL DISTRIBUTION WIDTH 20.3 % (9.0-15.0); WHITE BLOOD COUNT (AUTO) 3.8 K/uL (4.8-10.8)
[2020-06-02] MEDS: MEGESTROL ACETATE 400 MG/10 ML UDC PO SCH ×2 (08:58→21:40)
[2020-06-02] MEDS: DICYCLOMINE HCL 10 MG/5 ML SOLUTION PO SCH ×4 (08:58→21:00)
[2020-06-02] MEDS: PANTOPRAZOLE SODIUM 40 MG TAB PO SCH (08:58)
[2020-06-02] MEDS: DILTIAZEM HCL 60 MG TABLET PO SCH (09:00)
[2020-06-02 09:01] LABS: ALANINE AMINOTRANSFERASE 62 U/L (12-78); ALBUMIN 1.9 g/dL (3.4-4.8); ANION GAP 12 (5-15); ASPARTATE AMINOTRANSFERASE 127 U/L (10-37); BILIRUBIN,DIRECT 7.4 mg/dL (0.0-0.3); CALCIUM 8.3 mg/dL (8.4-11.0); CHLORIDE 103 mmol/L (98-107); CREATININE 0.58 mg/dL (0.55-1.30); GLUCOSE 158 mg/dL (70-99); POTASSIUM 3.6 mmol/L (3.5-5.1); SODIUM SERUM 139 mmol/L (136-145); UREA NITROGEN, BLOOD 7 mg/dL (8-21)
[2020-06-02] MEDS: ENOXAPARIN SODIUM 40 MG/0.4 ML SYRINGE SUBCUT SCH (09:01)
[2020-06-02] MEDS: FAMOTIDINE 20 MG TABLET PO SCH (09:07)
[2020-06-02] MEDS: LEVOFLOXACIN 250 MG/D5W 50 ML IV SCH (09:07)
[2020-06-02 09:44] LABS: TOTAL BILIRUBIN 8.9 mg/dL (0.0-1.0)
--- NOTE | 2020-06-02 10:59 | NUR ---
Case mgt: I rec'd call from surgeon Dr. Watson asking about transfer to contracted hospital ([facility]) for higher level of care for ERCP/stent placement vs cholecystostomy tube placement-Dr. Watson indicates he s/w Dr. Lopez and GI Mds and he isn't doing cholecystectomy on pt. I called Dr. Justino Lopez to inform him of Dr. Watson's call/comment and Dr. Lopez gave me transfer order for higher level of care. I will fax MD order to [facility] at [phone] and call them at [phone].
[2020-06-02 11:06] LABS: ATYPICAL pANCA <1:20 titer (Neg:<1:20); CYTOPLASMIC (C-ANCA) <1:20 titer (Neg:<1:20); CYTOPLASMIC (P-ANCA) <1:20 titer (Neg:<1:20)
--- NOTE | 2020-06-02 11:34 | NUR ---
Case mgt: I called pt's son Heath Mejia at [phone] to explain MD order for transfer for higher level of care for ERCP/stent vs. cholecystostomy tube poss surgery for complex case--Heath is agreeable for transfer and asked for a call from Dr. Lopez to review MRI results of abdomen. I gave message to Dr. Lopez. Nurse Thiago unable to come to phone. Crys in xray is going to try to burn CD (machine not working yesterday). I will take transfer packet to nursing station. I am calling [facility] to f/u on transfer order I faxed-ATA GARCIA
--- NOTE | 2020-06-02 11:53 | NUR ---
Case mgt: I s/w Mary at [facility]--she said she has transfer order and info I faxed and case is unassigned at this time--she is requesting casework specialist to be assigned and to call me. ATA GARCIA
[2020-06-02 12:40] VITALS: BP_SYST 111
--- NOTE | 2020-06-02 13:43 | NUR ---
CONSULTATION CALLED Reason for Consultation: SECOND OPINION ON CHOLESTASIS Person Who was Notified: DR. ZAPATA-WILL SEE PATIENT 06/03/20 Consulting Physician: DR. ZAPATA Powder Carrier Specialty: SURGERY Ordering Physician: DR. MADDEN
[2020-06-02] MEDS: D5NS 1,000 ML IV SCH (14:49)
--- NOTE | 2020-06-02 16:05 | NUR ---
CALLED SEBASTIAN MCGARRY TO UPDATE AND PER PT REQUEST. SHELLEY HAS BEEN CONTACTED ABOUT PT TRANSFERRING TO A [facility] FOR A GALLBLADDER SURGERY. TRANSFER IS PENDING. SHELLEY PLANS TO VISIT PT'S WINDOW TOMORROW.
[2020-06-02 16:21] VITALS: BP_SYST 125
--- NOTE | 2020-06-02 19:20 | NUR ---
CLOSING NOTE: CONTINUE IV ANTIBIOTICS AND FLUIDS. INCONTINENT OF URINE AND STOOL. CONTINUES ON CLEAR LIQUIDS, VERY POOR APPETITE. A&O X2, VERY FORGETFUL ASKS FOR SON SHELLEY TO VISIT, HE VISITED YESTERDAY.
[2020-06-02 20:00] VITALS: BP_SYST 130
[2020-06-02] MEDS: ATORVASTATIN 20 MG TABLET PO SCH (21:40)
[2020-06-02] MEDS: traZODone HCL 50 MG TABLET (DESYREL) PO SCH (21:40)
[2020-06-03] VITALS: BP_SYST 118
[2020-06-03] MEDS: HYDROmorphone 2 MG/ML VIAL IVP PRN ×2 (03:18→13:23)
[2020-06-03] MEDS: metroNIDAZOLE 250 mg/NS 50 ML IV SCH ×3 (05:20→21:56)
[2020-06-03 08:00] VITALS: BP_SYST 121
[2020-06-03 08:04] LABS: BASOPHILS % (AUTO) 0.9 % (0.0-2.0); EOSINOPHILS % (AUTO) 0.1 % (0.0-4.0); HEMATOCRIT 35.7 % (36-48); HEMOGLOBIN 11.3 g/dL (12.0-16.0); LYMPHOCYTES # (AUTO) 0.6 K/uL (1.0-5.5); LYMPHOCYTES % (AUTO) 14.6 % (20.5-51.5); MEAN CORPUSCULAR HEMOGLOBIN 26 pg (27-31); MEAN CORPUSCULAR HGB CONC 32 % (32-36); MEAN CORPUSCULAR VOLUME 81 fL (79.0-98.0); MONOCYTES # (AUTO) 0.3 K/uL (0.0-1.0); MONOCYTES % (AUTO) 6.6 % (1.7-9.3); NEUTROPHILS # (AUTO) 3.1 K/uL (1.8-7.7); NEUTROPHILS % (AUTO) 77.8 % (40.0-70.0); PLATELET COUNT (AUTO) 190 K/uL (130-430); RED BLOOD CELL COUNT(AUTO) 4.41 MIL/uL (4.2-6.2); RED CELL DISTRIBUTION WIDTH 20.5 % (9.0-15.0)
[2020-06-03 08:09] LABS: ANION GAP 11 (5-15); CALCIUM 8.4 mg/dL (8.4-11.0); CHLORIDE 101 mmol/L (98-107); CREATININE 0.57 mg/dL (0.55-1.30); GLUCOSE 133 mg/dL (70-99); POTASSIUM 3.5 mmol/L (3.5-5.1); SODIUM SERUM 135 mmol/L (136-145); UREA NITROGEN, BLOOD 7 mg/dL (8-21)
[2020-06-03] MEDS: DILTIAZEM HCL 60 MG TABLET PO SCH (09:30)
[2020-06-03] MEDS ORDERED: FAMOTIDINE 20 MG TABLET ONE (09:34)
[2020-06-03] MEDS: DICYCLOMINE HCL 10 MG/5 ML SOLUTION PO SCH ×4 (09:40→21:40)
[2020-06-03] MEDS: FAMOTIDINE 20 MG TABLET PO SCH (09:41)
[2020-06-03] MEDS: MEGESTROL ACETATE 400 MG/10 ML UDC PO SCH ×2 (09:41→21:40)
[2020-06-03] MEDS: PANTOPRAZOLE SODIUM 40 MG TAB PO SCH (09:41)
[2020-06-03] MEDS: ENOXAPARIN SODIUM 40 MG/0.4 ML SYRINGE SUBCUT SCH (09:42)
[2020-06-03] MEDS: D5NS 1,000 ML IV SCH (11:10)
[2020-06-03 12:07] VITALS: BP_SYST 134
[2020-06-03 12:49] VITALS: BP_SYST 134
--- NOTE | 2020-06-03 15:43 | NUR ---
Discharge Planning BULLET ASSEMBLY PRESS OPERATOR called [facility],[phone] and was told this case was not assigned a case finisher. The clinicals packet was received and the medication assistant stated she will get a case finisher assigned a worker yesika.
[2020-06-03 16:00] VITALS: BP_SYST 111
--- NOTE | 2020-06-03 19:23 | NUR ---
closing note: PICC line infiltrated, RU arm edematous, new line to be placed. Heath, son, updated. Once line replaced, continue IV antibiotics and fluids. Plan is still to transfer to [facility] for higher level of care/procedure. very poor appetite. continue q2 turns to offload blanchable area on coccyx.
[2020-06-03 20:00] VITALS: BP_SYST 132
[2020-06-03] MEDS: traZODone HCL 50 MG TABLET (DESYREL) PO SCH (21:40)
[2020-06-03] MEDS: ATORVASTATIN 20 MG TABLET PO SCH (21:40)
[2020-06-04] VITALS: BP_SYST 121
[2020-06-04] MEDS: metroNIDAZOLE 250 mg/NS 50 ML IV SCH ×3 (06:10→21:12)
[2020-06-04] MEDS: D5NS 1,000 ML IV SCH (06:31)
[2020-06-04 07:21] LABS: BASOPHILS % (AUTO) 0.7 % (0.0-2.0); HEMATOCRIT 28.9 % (36-48); HEMOGLOBIN 9.6 g/dL (12.0-16.0); LYMPHOCYTES # (AUTO) 0.7 K/uL (1.0-5.5); MEAN CORPUSCULAR HEMOGLOBIN 26 pg (27-31); MEAN CORPUSCULAR HGB CONC 33 % (32-36); MEAN CORPUSCULAR VOLUME 79 fL (79.0-98.0); MONOCYTES # (AUTO) 0.3 K/uL (0.0-1.0); MONOCYTES % (AUTO) 7.9 % (1.7-9.3); NEUTROPHILS # (AUTO) 2.5 K/uL (1.8-7.7); NEUTROPHILS % (AUTO) 72.4 % (40.0-70.0); PLATELET COUNT (AUTO) 184 K/uL (130-430); RED BLOOD CELL COUNT(AUTO) 3.66 MIL/uL (4.2-6.2); RED CELL DISTRIBUTION WIDTH 19.4 % (9.0-15.0); WHITE BLOOD COUNT (AUTO) 3.5 K/uL (4.8-10.8)
[2020-06-04 07:57] LABS: ANION GAP 11 (5-15); CALCIUM 7.9 mg/dL (8.4-11.0); CHLORIDE 100 mmol/L (98-107); CREATININE 0.51 mg/dL (0.55-1.30); GLUCOSE 119 mg/dL (70-99); SODIUM SERUM 134 mmol/L (136-145); UREA NITROGEN, BLOOD 5 mg/dL (8-21)
[2020-06-04 08:00] VITALS: BP_SYST 149
[2020-06-04] MEDS: DILTIAZEM HCL 60 MG TABLET PO SCH (09:00)
[2020-06-04] MEDS: DICYCLOMINE HCL 10 MG/5 ML SOLUTION PO SCH ×4 (09:00→21:11)
[2020-06-04] MEDS: ENOXAPARIN SODIUM 40 MG/0.4 ML SYRINGE SUBCUT SCH (10:30)
[2020-06-04] MEDS: PANTOPRAZOLE SODIUM 40 MG TAB PO SCH (10:30)
[2020-06-04] MEDS: FAMOTIDINE 20 MG TABLET PO SCH (10:30)
[2020-06-04] MEDS: MEGESTROL ACETATE 400 MG/10 ML UDC PO SCH ×2 (10:30→21:11)
[2020-06-04] MEDS ORDERED: FAMOTIDINE 20 MG TABLET ONE (10:48)
[2020-06-04] MEDS: HYDROmorphone 2 MG/ML VIAL IVP PRN ×2 (11:00→17:06)
[2020-06-04 11:31] VITALS: BP_SYST 116
--- NOTE | 2020-06-04 14:31 | NUR ---
K+ 3.0, ORDERED PRN K+ 49mEQ Addendum: 06/04/20 at 1439 by Thiago Walsh RN 40mEq IV REPLACEMENT
[2020-06-04 15:29] VITALS: BP_SYST 118
--- NOTE | 2020-06-04 18:31 | NUR ---
closing note: continue IV fluids and antibiotics. Very poor appetite, will take water with meds. dilaudid for pain. incontinent of urine and stool. K+ 3.0, replaced with 40mEq of IV K+ per protocol. Wound care consult ordered, foam placed on coccyx, needs low air loss mattress.
[2020-06-04 20:00] VITALS: BP_SYST 104
[2020-06-04] MEDS: ATORVASTATIN 20 MG TABLET PO SCH (21:11)
[2020-06-04] MEDS: traZODone HCL 50 MG TABLET (DESYREL) PO SCH (21:11)
[2020-06-05] VITALS: BP_SYST 121
[2020-06-05] MEDS: D5NS 1,000 ML IV SCH ×2 (03:10→23:10)
[2020-06-05] MEDS: metroNIDAZOLE 250 mg/NS 50 ML IV SCH ×3 (06:10→21:33)
[2020-06-05 07:37] LABS: ANION GAP 8 (5-15); CALCIUM 7.8 mg/dL (8.4-11.0); CHLORIDE 98 mmol/L (98-107); CREATININE 0.75 mg/dL (0.55-1.30); GLUCOSE 141 mg/dL (70-99); POTASSIUM 3.3 mmol/L (3.5-5.1); SODIUM SERUM 130 mmol/L (136-145); UREA NITROGEN, BLOOD 7 mg/dL (8-21)
[2020-06-05 07:46] LABS: BASOPHILS % (AUTO) 0.8 % (0.0-2.0); EOSINOPHILS % (AUTO) 0.1 % (0.0-4.0); HEMATOCRIT 27.4 % (36-48); HEMOGLOBIN 9.1 g/dL (12.0-16.0); LYMPHOCYTES # (AUTO) 0.8 K/uL (1.0-5.5); LYMPHOCYTES % (AUTO) 25.5 % (20.5-51.5); MEAN CORPUSCULAR HEMOGLOBIN 26 pg (27-31); MEAN CORPUSCULAR HGB CONC 33 % (32-36); MEAN CORPUSCULAR VOLUME 79 fL (79.0-98.0); MONOCYTES # (AUTO) 0.3 K/uL (0.0-1.0); MONOCYTES % (AUTO) 9.5 % (1.7-9.3); NEUTROPHILS # (AUTO) 2.1 K/uL (1.8-7.7); NEUTROPHILS % (AUTO) 64.1 % (40.0-70.0); PLATELET COUNT (AUTO) 159 K/uL (130-430); RED BLOOD CELL COUNT(AUTO) 3.46 MIL/uL (4.2-6.2); RED CELL DISTRIBUTION WIDTH 19.7 % (9.0-15.0); WHITE BLOOD COUNT (AUTO) 3.3 K/uL (4.8-10.8)
[2020-06-05 08:00] VITALS: BP_SYST 107
[2020-06-05] MEDS ORDERED: FAMOTIDINE PF 20 MG/2 ML VIAL ONE (08:10)
[2020-06-05] MEDS ORDERED: FAMOTIDINE 20 MG TABLET ONE (08:14)
[2020-06-05] MEDS: DILTIAZEM HCL 60 MG TABLET PO SCH (08:45)
[2020-06-05] MEDS: DICYCLOMINE HCL 10 MG/5 ML SOLUTION PO SCH ×4 (08:45→21:10)
[2020-06-05] MEDS: MEGESTROL ACETATE 400 MG/10 ML UDC PO SCH ×2 (08:45→21:10)
[2020-06-05] MEDS: PANTOPRAZOLE SODIUM 40 MG TAB PO SCH (08:45)
[2020-06-05] MEDS: ENOXAPARIN SODIUM 40 MG/0.4 ML SYRINGE SUBCUT SCH (08:46)
[2020-06-05] MEDS: FAMOTIDINE 20 MG TABLET PO SCH (08:47)
[2020-06-05] MEDS ORDERED: POTASSIUM CHLORIDE 20 MEQ TAB.PRT.SR PO ONE (09:00)
[2020-06-05 11:33] VITALS: BP_SYST 107
--- NOTE | 2020-06-05 12:50 | NUR ---
Spoke w/ Rodney at [facility]-he will have CM at [facility] call me back re:transfer to tertiary LOC for biliary obstruction.
--- NOTE | 2020-06-05 14:19 | NUR ---
K+ 3.3, ordered 40mEq from pharmacy per protocol.
[2020-06-05] MEDS: HYDROmorphone 2 MG/ML VIAL IVP PRN ×2 (14:54→23:44)
[2020-06-05 15:30] VITALS: BP_SYST 115
--- NOTE | 2020-06-05 15:40 | NUR ---
Spoke w/ Eileen at [facility]-she stated [facility] is not accepting patient transfers for care. She suggested I find tertiary placement for patient. I spoke to patient's son who stated she became [facility] pt as of May 11. She has had no care as a [facility] pt. Her surgery was done by Dr Era Aguilar in [facility]. He saw pt 05/24 for removal of stitches but has no need to follow patient again. The patient has had no oncology follow up. Primary care at [facility] is Dr Mickey Serrano at [facility]-he has never seen the patient. I called [facility]-where the pt had diagnostic studies in the past. They will see pt for EUS if they have an MAYI with [facility]. Call placed to [facility] for MAYI with [facility] for procedure.
--- NOTE | 2020-06-05 18:34 | NUR ---
closing note: On RA, stats high 90s. IV antibiotics and fluids. Very poor appetite, is only drinking water. Wound care nurse in to view wound, foam dressing in place, blanchable. K+ 3.3, given 40mEq per protocol. Son Noman at window and spoke to pt on her room phone this henok. Plan is for transfer to [place], possibly [facility].
[2020-06-05] MEDS: ATORVASTATIN 20 MG TABLET PO SCH (21:10)
[2020-06-05] MEDS: traZODone HCL 50 MG TABLET (DESYREL) PO SCH (21:10)
[2020-06-05 23:23] VITALS: BP_SYST 108
--- NOTE | 2020-06-05 23:54 | NUR ---
FAMILY NOTIFIED : SHELLEY CUEVA CALLED ON [phone] AND NOTIFIED THAT PT WILL BE TRANSFERRING TO [facility] [place] .PROVIDED PHONE NO TO CONTACT [facility] -[phone]. SON GAVE THE CONSENT TO TRANSFER PT .
== END 2020-06-06 00:10 | disposition short-term general hospital (02) | DRG 177 ==
LOC: EDSEX 17:40 → SED 17:40 → SMU 19:46
PROVIDERS: ADMIT Family Medicine; ATTEND Family Medicine
PROC: 05HY33Z Insertion of Infusion Device into Upper Vein, Percutaneous Approach (ICD-10-PCS; 2020-05-28)
PROC: 02HV33Z Insertion of Infusion Device into Superior Vena Cava, Percutaneous Approach (ICD-10-PCS; principal; 2020-06-03)
PROC: B548ZZA Ultrasonography of Superior Vena Cava, Guidance (ICD-10-PCS; 2020-06-03)
DX: U07.1 COVID-19 (principal); J12.82 Pneumonia due to coronavirus disease 2019; N17.0 Acute kidney failure with tubular necrosis; G93.41 Metabolic encephalopathy; E43 Unspecified severe protein-calorie malnutrition; J96.91 Respiratory failure, unspecified with hypoxia; D68.9 Coagulation defect, unspecified; E87.1 Hypo-osmolality and hyponatremia; C17.0 Malignant neoplasm of duodenum; J44.0 Chronic obstructive pulmonary disease with (acute) lower respiratory infection; K80.10 Calculus of gallbladder with chronic cholecystitis without obstruction; E87.6 Hypokalemia; D72.819 Decreased white blood cell count, unspecified; I25.10 Atherosclerotic heart disease of native coronary artery without angina pectoris; I50.9 Heart failure, unspecified; K82.8 Other specified diseases of gallbladder; M19.90 Unspecified osteoarthritis, unspecified site; N18.9 Chronic kidney disease, unspecified; Z60.2 Problems related to living alone; R74.01 Elevation of levels of liver transaminase levels; E87.8 Other disorders of electrolyte and fluid balance, not elsewhere classified; F41.1 Generalized anxiety disorder; I48.91 Unspecified atrial fibrillation; E83.39 Other disorders of phosphorus metabolism; L08.9 Local infection of the skin and subcutaneous tissue, unspecified; E86.0 Dehydration; E11.22 Type 2 diabetes mellitus with diabetic chronic kidney disease; Z90.49 Acquired absence of other specified parts of digestive tract; Z68.25 Body mass index [BMI] 25.0-25.9, adult; Z88.8 Allergy status to other drugs, medicaments and biological substances; Z79.01 Long term (current) use of anticoagulants; Z79.899 Other long term (current) drug therapy
CPT/HCPCS: 36415; 71045; 74181; 76376; 76700-TC; 80048; 80053; 80061; 80074; 80076; 82103; 82105; 82140-TC; 82150-TC; 82378; 82607; 82746; 82977-TC; 83010; 83036; 83516; 83540-TC; 83550-TC; 83605; 83615-TC; 83690-TC; 83735-TC; 83880; 84100-TC; 84238; 84439; 84443-TC; 84484; 85007; 85025; 85027; 85044-TC; 85610-TC; 85730-TC; 86038; 86256; 86301; 87040-TC; 87081; 93005; 96365; 99285; C1751; G0480; G0481; J0696; J1170; J1650; J1956; J2270; J2405; J3430; J3480; J3490; J7042; J7050; J7060